=== PATIENT | female | born 1980 | race Caucasian/White ===

== ENCOUNTER 2016-08-11 16:17 | Emergency (ER) | payer BC, OTHER ==
--- NOTE | 2016-08-11 16:33 | PDOC ---
History of Present Illness - General History Source: Patient Exam Limitations: No Limitations - History of Present Illness Initial Comments: 08/11/16 17:10 The patient is a 35 year old female, with a significant past medical history of gastritis, kidney stones, and open heart surgery(for VSD repair and Dual chamber ), who presents to the emergency department complaining of epigastric abdominal pain since approximately 15:00. The patient reports she was at work when suddenly she began to feel itching in her hands. She reports she began to feel epigastric pain shortly after the itching in her hands. She reports at first she thought it was an allergic reaction. Patient describes her abdominal pain as sharp and constant. She reports her pain radiates into her right back. She reports associated nausea, vomiting(nonbloody/nonbilious), diarrhea(nonbloody), and diaphoresis. The patient reports she is currently on her menstrual period, and reports associated cramping, but states her epigastric pain is different than her menses pain. She reports her epigastric pain is similar to her gastritis discomfort. Patient reports she frequently experiences epigastric pain in the morning, but usually it resolves on its own. Patient admits to a poor diet. The patient reports her pain is alleviated with flatulence. The patient denies any fever, chills, cough, headache, or dizziness. The patient denies any chest pain, shortness of breath, or palpitations. The patient denies any dysuria, hematuria, frequency, or urgency. The patient denies any recent travel or sick contacts. Allergies: None reported. Past Surgical History: CABG (VSD repair and dual chamber) Social History: Non-smoker. Denies alcohol or drug use. <Cesar Moreno - Last Filed: 08/11/16 18:23> <Kai Sullivan - Last Filed: 08/13/16 13:18> - General Stated Complaint: NAUSEA VOMITING Time Seen by Provider: 08/11/16 16:32 Past History <Cesar Moreno - Last Filed: 08/11/16 18:23> - Surgical History Appendectomy: Yes Cardiac Surgery: Yes (VSD repair dual chamber) - Psycho/Social/Smoking Cessation Hx Suicidal Ideation: No Smoking History: Never smoked <Kai Sullivan - Last Filed: 08/13/16 13:18> - Past Medical History Allergies/Adverse Reactions: Allergies Allergy/AdvReac Type Severity Reaction Status Date / Time No Known Allergies Allergy Verified 08/11/16 16:41 Home Medications: Ambulatory Orders Ibuprofen 800 mg PO TID #30 tablet 08/12/16 Tramadol HCl [Ultram -] 50 mg PO Q8H #30 tablet MDD 4 08/12/16 Review of Systems - Review of Systems Able to Perform ROS?: Yes Comments:: 08/11/16 17:11 CONSTITUTIONAL: Present: +Diaphoresis Absent: Fever, Chills, Generalized Weakness, Malaise, Loss of Appetite HEENT: Absent: Rhinorrhea, Nasal Congestion, Throat Pain, Throat Swelling, Difficulty Swallowing, Mouth Swelling, Ear Pain, Eye Pain, Visual Changes CARDIOVASCULAR: Absent: Chest Pain, Syncope, Palpitations, Irregular Heart Rate, Lightheadedness , Peripheral Edema RESPIRATORY: Absent: Cough, Shortness of Breath, SOB with Exertion, Orthopnea, Wheezing, Stridor, Hemoptysis GASTROINTESTINAL: Present: Abdominal pain(epigastric), +Nausea, +Vomiting, +Diarrhea Absent: Abdominal Distension, Constipation, Melena, Hematochezia GENITOURINARY: Absent: Dysuria, Frequency, Urgency, Hesitancy, Flank Pain, Genital Pain MUSCULOSKELETAL: Absent: Myalgia, Arthralgia, Joint Swelling, Back pain, Neck Pain SKIN: Present: +hand itching Absent: Rash, Itching, Pallor HEMATOLOGIC/IMMUNOLOGIC: Absent: Easy Bleeding, Easy Bruising, Lymphadenopathy, Frequent infections ENDOCRINE: Absent: Unexplained Weight Gain, Unexplained Weight Loss, Heat Intolerance, Cold Intolerance NEUROLOGIC: Absent: Headache, Focal Weakness, Paresthesias, Vertigo, Lightheadedness, Unsteady Gait, Seizure, Mental Status Changes, Incontinence PSYCHIATRIC: Absent: Anxiety, Depression <Cesar Moreno - Last Filed: 08/11/16 18:23> *Physical Exam - Vital Signs Last Vital Signs Temp Pulse Resp BP Pulse Ox 97.5 F L 81 20 121/82 99 08/11/16 16:41 08/11/16 16:41 08/11/16 16:41 08/11/16 16:41 08/11/16 16:41 - Physical Exam Comments: 08/11/16 17:13 GENERAL: The patient is awake, alert, and fully oriented, in no acute distress. HEAD: Normal with no signs of trauma. EYES: Pupils equal, round and reactive to light, extraocular movements intact, sclera anicteric, conjunctiva clear. ENT: Ears normal, nares patent, oropharynx clear without exudates. Moist mucous membranes. NECK: Normal range of motion, supple without lymphadenopathy, JVD, or masses. LUNGS: Breath sounds equal, clear to auscultation bilaterally. No wheezes, and no crackles. HEART: Heart murmur to the left upper sternal border, holosystolic, grade 2/6. No rubs or gallops. Regular rate and rhythm. ABDOMEN: Soft, with diffuse tenderness on deep palpation in all four quadrants. Negative Roth's, no guarding or rebound tenderness. No masses. BACK: No CVA tenderness. EXTREMITIES: Normal range of motion, no edema. No clubbing or cyanosis. No cords , erythema, or tenderness. NEUROLOGICAL: Cranial nerves II through XII grossly intact. Normal speech, normal gait. PSYCH: Normal mood, normal affect. SKIN: Warm, Dry, normal turgor, no rashes or lesions noted. <Cesar Moreno - Last Filed: 08/11/16 18:23> ED Treatment Course - LABORATORY CBC & Chemistry Diagram: 08/11/16 18:15 08/11/16 18:15 <Kai Sullivan - Last Filed: 08/13/16 13:18> Medical Decision Making - Medical Decision Making 08/11/16 18:36 Patient is a 35-year-old woman who presents with epigastric pain as well as nausea, vomiting and diarrhea, onset this afternoon after 3 PM. Patient states she gets intermittent abdominal pain similar to this periodically. She currently also has her menses with some suprapubic cramping. She states the pain comes and goes, and is not different from prior episodes. However, the symptoms were severe so she came to the ED. Examination is notable for mild diffuse tenderness without guarding or rebound tenderness. Roth's sign is negative. There is no CVA tenderness. Initial impression is possible gastritis versus cholecystitis. Patient also has a history of kidney stones. However, the area of the pain in the midepigastrium is highly atypical for kidney stones. Plan is for complete abdominal ultrasound, laboratory workup, and oral Zofran as patient is unable to tolerate IV placement. Labs are currently pending. Endorsed to Dr. Mcconnell pending CT scan for further workup of elevated WBC and abdominal pain. <Kai Sullivan - Last Filed: 08/13/16 13:18> *DC/Admit/Observation/Transfer - Attestations Scribe Attestion: 08/11/16 17:13 Documentation prepared by Cesar Moreno, acting as er medical technician for Kai Sullivan MD. <Cesar Moreno - Last Filed: 08/11/16 18:23> - Discharge Dispostion Admit: Yes <Kai Sullivan - Last Filed: 08/13/16 13:18> Diagnosis at time of Disposition: Abdominal pain Qualifiers: Abdominal location: right lower quadrant Qualified Code(s): R10.31 - Right lower quadrant pain - Discharge Dispostion Condition at time of disposition: Stable - Prescriptions Prescriptions: Ibuprofen 800 mg PO TID #30 tablet Tramadol HCl [Ultram -] 50 mg PO Q8H #30 tablet MDD 4 - Patient Instructions Printed Discharge Instructions: DI for Abdominal Pain-Adult Additional Instructions: Please follow up with your doctor for re-evaluation. Take medication as directed. Retrun if any problems - Post Discharge Activity Work/School Note: Back to Work
[2016-08-11 16:56] VITALS: BMI 25.0
[2016-08-11 17:56] LABS: URINE APPEARANCE CLEAR; URINE BILIRUBIN NEGATIVE (NEGATIVE); URINE COLOR YELLOW; URINE GLUCOSE (UA) NEGATIVE (NEGATIVE); URINE KETONE NEGATIVE (NEGATIVE); URINE NITRITE NEGATIVE (NEGATIVE); URINE UROBILINOGEN NEGATIVE E.U./dl (0.2-1.0)
[2016-08-11 18:31] LABS: URINE BLOOD 2+ (NEGATIVE); URINE LEUK ESTERASE TRACE (NEGATIVE); URINE PROTEIN 1+ (NEGATIVE)
[2016-08-11 18:32] LABS: BASOPHIL 0.3 % (0-2.0); EOSINOPHIL 0.4 % (0-4.5); MCH 27.6 pg (25.7-33.7); MCHC 32.4 g/dl (32.0-36.0); MEAN CELL VOLUME 85.4 fl (80-96); MEAN PLT VOLUME 9.4 fl (7.5-11.1); NEUTROPHILS 83.7 % (42.8-82.8); PLATELET COUNT 212 K/MM3 (134-434); RDW 13.3 % (11.6-15.6); WHITE BLOOD COUNT 22.2 K/mm3 (4.0-10.0)
[2016-08-11] MEDS: ONDANSETRON 4 MG TABLET PO ONE ×2 (18:32→19:02)
[2016-08-11 18:45] LABS: URINE MUCUS RARE; URINE RBC 97 /hpf (0-3); URINE WBC 5 /hpf (3-5)
[2016-08-11] MEDS ORDERED: ONDANSETRON 8 MG TABLET (FP) PO ONE (19:01)
[2016-08-11 19:09] LABS: ALBUMIN 4.1 g/dl (3.4-5.0); ALK PHOS 68 U/L (45-117); ANION GAP 12 (8-16); BILIRUBIN,TOTAL 0.4 mg/dL (0.2-1.0); CALCIUM 8.5 mg/dL (8.5-10.1); CO2 24 mmol/L (21-32); COCKROFT - GAULT 143.8625; CREATININE 0.6 mg/dL (0.55-1.02); GLUCOSE,RANDOM 92 mg/dL (74-106); SGOT/AST 17 U/L (15-37); SGPT/ALT 26 U/L (12-78); TOT PROT 7.9 g/dl (6.4-8.2)
[2016-08-11] MEDS ORDERED: LEVOFLOXACIN 500 MG IVPB 100 ML IVPB ONE (23:33)
[2016-08-11] MEDS ORDERED: METRONIDAZOLE 500 MG PREMIXED 100 ML IVPB ONE (23:33)
[2016-08-11] MEDS ORDERED: METRONIDAZOLE 500 MG IVPB ONE (23:45)
[2016-08-11] MEDS ORDERED: PREMIXED IVPB ONE (23:45)
[2016-08-11] MEDS ORDERED: LEVOFLOXACIN 500 MG IVPB ONE (23:45)
[2016-08-12] MEDS ORDERED: LEVOFLOXACIN 500 MG TABLET (FP) PO ONE (00:10)
[2016-08-12] MEDS ORDERED: metroNIDAZOLE 250 MG TABLET PO ONE (00:11)
[2016-08-12] MEDS ORDERED: LEVOFLOXACIN 500 MG TABLET (FP) ONE (00:15)
[2016-08-12] MEDS ORDERED: metroNIDAZOLE 250 MG TABLET ONE (00:15)
[2016-08-12] MEDS ORDERED: KETOROLAC TROMETHAMINE 60 MG/2 ML VIAL IM ONE (02:25)
[2016-08-12] MEDS ORDERED: ONDANSETRON *ODT* 4 MG TABLET SL ONE (02:25)
[2016-08-12] MEDS ORDERED: ONDANSETRON *ODT* 4 MG TABLET ONE (03:20)
[2016-08-12] MEDS ORDERED: KETOROLAC TROMETHAMINE 60 MG/2 ML VIAL ONE (03:20)
[2016-08-12] MEDS ORDERED: IBUPROFEN 400 MG TABLET (FP) PO ONE ×2 (06:17→06:42)
--- NOTE | 2016-08-12 06:18 | PDOC ---
*Physical Exam - Vital Signs Last Vital Signs Temp Pulse Resp BP Pulse Ox 97.5 F L 81 20 121/82 99 08/11/16 16:41 08/11/16 16:41 08/11/16 16:41 08/11/16 16:41 08/11/16 19:57 ED Treatment Course - LABORATORY CBC & Chemistry Diagram: 08/11/16 18:15 08/11/16 18:15 - ADDITIONAL ORDERS Additional order review: Laboratory Results 08/11/16 08/11/16 08/11/16 21:40 18:15 17:35 Sodium 140 Potassium 3.6 Chloride 104 Carbon Dioxide 24 Anion Gap 12 BUN 11 Creatinine 0.6 Creat Clearance w eGFR > 60 Random Glucose 92 Calcium 8.5 Total Bilirubin 0.4 AST 17 ALT 26 Alkaline Phosphatase 68 Total Protein 7.9 Albumin 4.1 Lipase Urine Color Yellow Urine Appearance Clear Urine pH 5.0 Ur Specific [place] 1.029 Urine Protein 1+ H Urine Glucose (UA) Negative Urine Ketones Negative Urine Blood 2+ H Urine Nitrite Negative Urine Bilirubin Negative Urine Urobilinogen Negative Ur Leukocyte Esterase Trace H Urine RBC 97 Urine WBC 5 Ur Epithelial Cells Rare Urine Mucus Rare Urine HCG, Qual Negative 08/11/16 17:03 Sodium Potassium Chloride Carbon Dioxide Anion Gap BUN Creatinine Creat Clearance w eGFR Random Glucose Calcium Total Bilirubin AST ALT Alkaline Phosphatase Total Protein Albumin Lipase 131 Urine Color Urine Appearance Urine pH Ur Specific [place] Urine Protein Urine Glucose (UA) Urine Ketones Urine Blood Urine Nitrite Urine Bilirubin Urine Urobilinogen Ur Leukocyte Esterase Urine RBC Urine WBC Ur Epithelial Cells Urine Mucus Urine HCG, Qual 08/11/16 18:15 RBC 5.42 H MCV 85.4 MCHC 32.4 RDW 13.3 MPV 9.4 Neutrophils % 83.7 H Lymphocytes % 10.0 Monocytes % 5.6 Eosinophils % 0.4 Basophils % 0.3 - RADIOLOGY Radiology Studies Ordered: Category Date Time Status ABDOMEN & PELVIS CT W/O CONTR [CT] Stat CT Scan 08/12/16 03:37 Taken - Medications Given in the ED: ED Medications Discontinued Medications Generic Name Dose Route Start Last Admin Trade Name Freq PRN Reason Stop Dose Admin Metronidazole 100 mls @ 100 mls/hr 08/11/16 23:33 08/12/16 00:11 Flagyl 500mg Premixed Ivpb - IVPB 08/12/16 00:32 Not Given ONCE ONE Levofloxacin 100 mls @ 100 mls/hr 08/11/16 23:33 08/12/16 00:11 Levaquin 500 Mg Premixed Ivpb - IVPB 08/12/16 00:32 Not Given ONCE ONE Ketorolac Tromethamine 60 mg 08/12/16 02:25 08/12/16 03:20 Toradol Injection - IM 08/12/16 02:26 Not Given ONCE ONE Levofloxacin 500 mg 08/12/16 00:10 08/12/16 00:24 Levaquin - PO 08/12/16 00:11 500 mg ONCE ONE Administration Metronidazole 500 mg 08/12/16 00:11 08/12/16 00:24 Flagyl - PO 08/12/16 00:12 500 mg ONCE ONE Administration Ondansetron HCl 4 mg 08/11/16 18:14 08/11/16 19:02 Zofran - PO 08/11/16 18:15 4 mg ONCE ONE Administration Ondansetron HCl 4 mg 08/12/16 02:25 08/12/16 03:20 Zofran Odt - SL 08/12/16 02:26 Not Given ONCE ONE *DC/Admit/Observation/Transfer Diagnosis at time of Disposition: Abdominal pain Qualifiers: Abdominal location: right lower quadrant Qualified Code(s): R10.31 - Right lower quadrant pain - Discharge Dispostion Disposition: HOME Condition at time of disposition: Stable Admit: No - Prescriptions Prescriptions: Ibuprofen 800 mg PO TID #30 tablet Tramadol HCl [Ultram -] 50 mg PO Q8H #30 tablet MDD 4 - Patient Instructions Printed Discharge Instructions: DI for Abdominal Pain-Adult Additional Instructions: Please follow up with your doctor for re-evaluation. Take medication as directed. Retrun if any problems - Post Discharge Activity Work/School Note: Back to Work
[2016-08-12 06:59] VITALS: BP 120/80; PULSE 78; TEMP 98
== END 2016-08-12 07:00 ==
LOC: JER 16:17
DX: R10.84 Generalized abdominal pain (principal); Z87.442 Personal history of urinary calculi; Z87.19 Personal history of other diseases of the digestive system; Z98.890 Other specified postprocedural states
CPT/HCPCS: 36415; 74176-TC; 76700-TC; 80053; 81003; 81015; 83690; 84703; 85025; 87086; 99284-25

== ENCOUNTER 2023-05-19 09:45 | Emergency (ER) | payer BC, OTHER ==
[2023-05-19 09:58] VITALS: RESP 18; BMI 25.8
[2023-05-19] MEDS ORDERED: ONDANSETRON 4 MG/2 ML VIAL IVPUSH ONE (10:53)
[2023-05-19] MEDS ORDERED: ACETAMINOPHEN 1000 MG/100 ML BAG IVPB ONE (10:53)
[2023-05-19] MEDS ORDERED: FAMOTIDINE 20 MG/50 ML IVPB 20 MG/50 ML MG IVPB ONE ×2 (10:53→10:56)
[2023-05-19] MEDS ORDERED: LACTATED RINGERS SOLUTION 1000 ML INFUS.BAG IV ONE (10:53)
[2023-05-19] MEDS ORDERED: ONDANSETRON 4 MG/2 ML VIAL ONE (10:56)
[2023-05-19] MEDS ORDERED: ACETAMINOPHEN INJECTION 100 ML IVPB ONE (10:56)
[2023-05-19 11:41] LABS: BASO % 0.5 % (0-2.0); EOS % 1.8 % (0-4.5); HEMATOCRIT 44.3 % (32.4-45.2); HEMOGLOBIN 14.4 GM/dL (10.7-15.3); LYMPH % 25.2 % (8-40); MCH 27.7 pg (25.7-33.7); MCHC 32.5 g/dl (32.0-36.0); MEAN CELL VOLUME 85.2 fl (80-96); MEAN PLT VOLUME 9.1 fl (7.5-11.1); MONO % 10.1 % (3.8-10.2); NEUT % 62.4 % (42.8-82.8); PLATELET COUNT 267 10^3/uL (134-434); RDW 13.5 % (11.6-15.6); WHITE BLOOD COUNT 7.8 K/mm3 (4.0-10.0)
[2023-05-19 11:48] LABS: HCG,QUALITATIVE URINE Negative
[2023-05-19 11:50] LABS: EPI CELLS 9 /uL (0-25.1); HYALINE CASTS 0 /uL (0-3.1); PH,URINE 5.5 (5.0-8.0); URINE APPEARANCE CLEAR; URINE BACTERIA 6 /uL (0-1359); URINE BILIRUBIN NEGATIVE (NEGATIVE); URINE COLOR YELLOW; URINE GLUCOSE (UA) NEGATIVE (NEGATIVE); URINE KETONE TRACE (NEGATIVE); URINE LEUK ESTERASE NEGATIVE (NEGATIVE); URINE NITRITE NEGATIVE (NEGATIVE); URINE PROTEIN NEGATIVE (NEGATIVE); URINE RBC 723 /uL (0-23.9); URINE UROBILINOGEN 0.2 mg/dL (0.2-1.0); URINE WBC 14 /uL (0-25.8)
[2023-05-19 11:55] LABS: POTASSIUM 3.5 mmol/L (3.5-5.1)
[2023-05-19 11:58] LABS: CALCIUM 9.3 mg/dL (8.5-10.1)
[2023-05-19 11:59] LABS: ALBUMIN 4.3 g/dl (3.4-5.0); BLOOD UREA NITROGEN 10.2 mg/dL (7-18); MAGNESIUM 2.1 mg/dL (1.8-2.4)
[2023-05-19 12:02] LABS: CREATININE 0.9 mg/dL (0.55-1.3)
[2023-05-19 12:03] LABS: BILIRUBIN,TOTAL 0.5 mg/dL (0.2-1); TOT PROT 9.2 g/dl (6.4-8.2)
[2023-05-19] MEDS ORDERED: KETOROLAC TROMETHAMINE 15 MG/ML VIAL IVPUSH ONE ×2 (12:03→17:53)
[2023-05-19] MEDS ORDERED: KETOROLAC TROMETHAMINE 15 MG/ML VIAL ONE ×2 (12:15→18:12)
[2023-05-19] MEDS ORDERED: LIDOCAINE 4% PATCH TP ONE ×3 (17:09→18:12)
[2023-05-19] MEDS ORDERED: METHOCARBAMOL 500 MG TABLET PO ONE (17:09)
[2023-05-19] MEDS ORDERED: METHOCARBAMOL 500 MG TABLET ONE (17:19)
[2023-05-19 18:20] VITALS: BP 147/93; PULSE 75; TEMP 98.5
[2023-05-19] MEDS ORDERED: LIDOCAINE PATCH REMOVAL MC SCH (22:00)
== END 2023-05-19 20:23 | disposition home or self-care (01) ==
LOC: JER 09:45
PROC: 3E033GC Introduction of Other Therapeutic Substance into Peripheral Vein, Percutaneous Approach (ICD-10-PCS; principal; 2023-05-19)
PROC: 3E033GC Introduction of Other Therapeutic Substance into Peripheral Vein, Percutaneous Approach (ICD-10-PCS; 2023-05-19)
PROC: 3E033NZ Introduction of Analgesics, Hypnotics, Sedatives into Peripheral Vein, Percutaneous Approach (ICD-10-PCS; 2023-05-19)
PROC: 3E0333Z Introduction of Anti-inflammatory into Peripheral Vein, Percutaneous Approach (ICD-10-PCS; 2023-05-19)
PROC: 3E0333Z Introduction of Anti-inflammatory into Peripheral Vein, Percutaneous Approach (ICD-10-PCS; 2023-05-19)
DX: R10.13 Epigastric pain (principal); R11.2 Nausea with vomiting, unspecified; R19.7 Diarrhea, unspecified; M79.604 Pain in right leg; M79.605 Pain in left leg; R61 Generalized hyperhidrosis; Z20.822 Contact with and (suspected) exposure to COVID-19
CPT/HCPCS: 0241U-QW; 36415; 71046-TC-FY; 74177-TC; 80053; 81003; 83735; 84439; 84443; 84484; 84703; 85025; 87086; 93005; 93010; 93970-TC; 99285-25; J0131